=== PATIENT | male | born 1985 | race Caucasian/White ===

== ENCOUNTER 2016-10-12 09:27 | Emergency (ER) | payer SELFPAY ==
[~2016-10-12] VITALS: Ht 177.8 cm; Wt 88.1 kg
[2016-10-12 09:30] VITALS: Ht 177.8 cm; Wt 88.1 kg
--- OUTSIDE RECORDS SUMMARY | 2016-10-12 09:31 | XMS REPORT | Continuity of Care Document ---
Author Author [facility] Organization [facility] Address Unknown Phone Unavailable Support Name Relationship Address Phone DESTINY AGUDELO M.D. Caregiver [employer] [address] [place] [address] YVES DYLLAN A Next Of Kin [address] JACKIE [birth year] [place] [address] Insurance Providers Payer Name Policy Number Subscriber Name Relationship Self Pay Insurance Anna Escamilla Jr 01 Self / Same As Patient Chief Complaint and Reason for Visit Chief Complaint Thumb Laceration Reason for Visit [id number] Problems Medical Problems Problem Onset Date Status Fingertip avulsion Unknown Active Medications Medication Dose Route Sig Days/Qty Instructions Order Date Discontinued Date Status Diphenhydramine Hcl 50 Mg PO DAILY 08/01/14 Active Ibuprofen 400 Mg PO NEEDED 08/01/14 Active Cephalexin Monohydrate 500 Mg PO FOUR TIMES DAILY For Bacterial Infection 28 Qty 08/01/14 Active Social History Social History Problem Response Recorded Date/Time Smoking Status Heavy Tobacco Smoker 08/01/2014 8:09pm Query Response Start Date Stop Date Smoking Status Heavy Tobacco Smoker Hospital Discharge Instructions No hospital discharge instructions. Plan of Care Discharge Date 08/01/14 10:28pm Disposition 01 HOME, SELF-CARE Condition at Discharge Stable Instructions/Education Provided Finger Amputation (ED) Prescriptions See Medications Section Additional Instructions/Education 1. Keep bandaged, use triple antibiotic ointment. 2. Follow up with your doctor in 2-3 days for recheck. 3. Take antibiotic as prescribed. Functional Status No functional status results. Allergies, Adverse Reactions, Alerts Allergen Type Severity Reaction Status Last Updated No Known Allergies Active 08/01/14 Immunizations No immunization records. Vital Signs Acute Vital Signs Vital Response Date/Time Blood Pressure 148/91 mm Hg Blood Pressure Mean 110 mm Hg Temperature (Fahrenheit) 98.7 degrees F (96.0 - 99.9) Temperature (Calculated Celsius) 37.74217 degrees C Temperature Source Oral Pulse Pulse Rate: ED 95 bpm Respiratory Rate 18 breaths per minute (10 - 20) Height (Feet) 5 ft Height (Inches) 11 in. Weight (Pounds) 180 lbs Results No known relevant diagnostic tests, laboratory data and/or discharge summary. Procedures No known history of procedures. Encounters Encounter Location Date/Time Departed Emergency Room [facility] Byr[facility] 08/01/14 8:00pm Recent Diagnosis
--- OUTSIDE RECORDS SUMMARY | 2016-10-12 09:31 | XMS REPORT | Continuity of Care Document ---
Author Author [facility] Address Unknown Phone Unavailable Support Name Relationship Address Phone MADDIE DOMÍNGUEZ M.D. Caregiver [place] [id number] [facility] [address] [place] [address] Unavailable CATRACHITA SORIANO Next Of Kin / [place] / [phone] Insurance Providers Guarantor Anna Escamilla Jr Address [address] [place] [address] Payer Self Pay Insurance Subscriber's Name Anna Escamilla Jr Relationship 01 Self / Same As Patient Chief Complaint and Reason for Visit Chief Complaint GI Bleed Reason for Visit [id number] Right sided abdominal pain Problems Active Problems Medical Problem Onset Date Status Fingertip avulsion Unknown Acute Fingertip avulsion Unknown Acute Past Problems Medical Problem Onset Date Rectal bleeding Unknown Right sided abdominal pain Unknown Medications Current Home Medications Medication Dose Units Route Directions Days Qty Instructions Start Date Dicyclomine Hcl (Bentyl) 20 Mg Tab 20 Mg Oral Three Times A Day as needed for Abdominal Cramping 15 Tablet 09/18/16 Diphenhydramine Hcl (Benadryl) 25 Mg Cap 50 Mg Oral Daily Ibuprofen 400 Mg Tab 400 Mg Oral As Needed 08/01/14 Past Home Medications Medication Directions Ordered Status Cephalexin Monohydrate (Keflex Disp Rx) 500 Mg Cap, 500 Mg Oral Four Times Daily for Bacterial Infection 08/01/14 Discontinued Social History Social History Problem Response Recorded Date/Time Onset Date Status Smoking Status Heavy Tobacco Smoker 09/18/2016 5:17pm Not Applicable Not Applicable Query Response Start Date Stop Date Smoking Status Heavy Tobacco Smoker Hospital Discharge Instructions No hospital discharge instructions. Plan of Care Discharge Date 09/18/16 6:36pm Disposition 01 HOME, SELF-CARE Condition at Discharge Stable Instructions/Education Provided Rectal Bleeding (ED) Abdominal Pain (ED) Prescriptions See Medication Section Referrals KAROLYN SANTILLAN M.D. Address: [address] [place] [address] Additional Instructions/Education Follow up with PCP to have a colonoscopy set up to further evaluate your rectal bleeding. Return to the ER if you have fevers, worsening abdominal pain, or worsening bleeding. Functional Status No functional status results. Allergies, Adverse Reactions, Alerts No known allergies. Immunizations No immunization records. Vital Signs Acute Vital Signs Vital Response Date/Time Blood Pressure 123/76 mm Hg 09/18/2016 6:27pm Blood Pressure Mean 92 mm Hg 09/18/2016 6:27pm Temperature (Fahrenheit) 98.3 degrees F (96.0 - 99.9) 09/18/2016 5:13pm Temperature (Calculated Celsius) 36.17813 degrees C 09/18/2016 5:13pm Temperature Source Oral 09/18/2016 5:13pm Pulse Pulse Rate: ED 82 bpm 09/18/2016 6:27pm Respiratory Rate 18 breaths per minute (10 - 20) 09/18/2016 6:27pm Height (Feet) 5 ft 09/18/2016 5:13pm Height (Inches) 11.0 in. 09/18/2016 5:13pm Weight (Pounds) 180.0 lbs 09/18/2016 5:13pm Height 5 ft 11 in 09/18/2016 5:13pm Weight 180 lb 09/18/2016 5:13pm Body Mass Index 25.1 kg/m^2 09/18/2016 5:13pm Results Laboratory Results Test Name Result Units Flags Reference Collection Date/Time Result Date/ Time Comments White Blood Count 10.5 K/uL H 5.0-10.0 09/18/2016 5:23pm 09/18/2016 5: 41pm Red Blood Count 5.03 M/uL 4.60-5.40 09/18/2016 5:23pm 09/18/2016 5: 41pm Hemoglobin 16.5 g/dL 14.0-18.0 09/18/2016 5:23pm 09/18/2016 5:41pm Hematocrit 47.7 % 40.0-54.0 09/18/2016 5:23pm 09/18/2016 5:41pm Mean Corpuscular Volume 94.8 fL H 80.0-94.0 09/18/2016 5:23pm 2016 5:41pm Mean Corpuscular Hemoglobin 32.8 pg 26.0-33.0 09/18/2016 5:2016 5:41pm Mean Corpuscular Hemoglobin Concent 34.6 g/dL 31.0-36.0 09/18/2016 5: 09/18/2016 5:41pm Red Cell Distribution Width 12.9 % 11.5-14.5 09/18/2016 5:2016 5:41pm RDW Standard Deviation 45.1 fL H 35.1-43.9 09/18/2016 5:09/18/2016 5:41pm Platelet Count 355 K/uL 130-400 09/18/2016 5:09/18/2016 5:41pm Mean Platelet Volume 9.1 fL 7.0-11.0 09/18/2016 5:09/18/2016 5: 41pm Neutrophils (%) (Auto) 62.1 % 42.0-75.0 09/18/2016 5:09/18/2016 5: 41pm Lymphocytes (%) (Auto) 27.9 % 16.0-44.0 09/18/2016 5:09/18/2016 5: 41pm Monocytes (%) (Auto) 6.7 % 2.0-9.0 09/18/2016 5:09/18/2016 5:41pm Eosinophils (%) (Auto) 1.8 % 0-7.0 09/18/2016 5:09/18/2016 5:41pm Basophils (%) (Auto) 1.2 % H 0-1 09/18/2016 5:09/18/2016 5:41pm Immature Granulocyte % (Auto) 0.3 % 0-0.5 09/18/2016 5:09/18/2016 5:41pm Nucleated Red Blood Cells % 0.0 /100WBC 0-0 09/18/2016 5:2016 5:41pm Neutrophils # (Auto) 6.5 K/uL 1.9-8.0 09/18/2016 5:09/18/2016 5: 41pm Lymphocytes # (Auto) 2.9 K/uL 0.9-5.2 09/18/2016 5:23pm 09/18/2016 5: 41pm Monocytes # (Auto) 0.7 K/uL 0.16-1.0 09/18/2016 5:23pm 09/18/2016 5: 41pm Eosinophils # (Auto) 0.2 K/uL 0-0.8 09/18/2016 5:23pm 09/18/2016 5: 41pm Basophils # (Auto) 0.1 K/uL 0-0.2 09/18/2016 5:23pm 09/18/2016 5:41pm Immature Granulocyte # (Auto) 0.03 K/uL 0-0.40 09/18/2016 5:23pm 2016 5:41pm Nucleated Red Blood Cells # 0.00 K/uL 0.0-0.012 09/18/2016 5:23pm 09/18 5:41pm Urine Color YELLOW 09/18/2016 5:38pm 09/18/2016 5:54pm Urine Appearance CLEAR 09/18/2016 5:38pm 09/18/2016 5:54pm Urine Glucose (UA) NEGATIVE NEGATIVE 09/18/2016 5:38pm 09/18/2016 5: 54pm Urine Bilirubin NEGATIVE NEGATIVE 09/18/2016 5:38pm 09/18/2016 5: 54pm Urine Ketones NEGATIVE NEGATIVE 09/18/2016 5:38pm 09/18/2016 5:54pm Urine Specific [place] 1.015 1.005-1.030 09/18/2016 5:38pm 2016 5:54pm Urine Occult Blood NEGATIVE NEGATIVE 09/18/2016 5:38pm 09/18/2016 5: 54pm Urine pH 7.0 4.5-8.0 09/18/2016 5:38pm 09/18/2016 5:54pm Urine Protein NEGATIVE NEGATIVE 09/18/2016 5:38pm 09/18/2016 5:54pm Urine Urobilinogen 0.2 E.U./dL 0.2-1.0 09/18/2016 5:38pm 09/18/2016 5: 54pm Urine Nitrate NEGATIVE NEGATIVE 09/18/2016 5:38pm 09/18/2016 5:54pm Urine Leukocyte Esterase NEGATIVE NEGATIVE 09/18/2016 5:38pm 2016 5:54pm Random Glucose 119 mg/dL H 65-115 09/18/2016 5:pm 09/18/2016 5:50pm Blood Urea Nitrogen 19 mg/dL 8-25 09/18/2016 5:09/18/2016 5:50pm Creatinine 0.92 mg/dL 0.9-1.6 09/18/2016 5:09/18/2016 5:50pm Glomerular Filtration Rate Calc 94.75 mL/min 09/18/2016 5:2016 5:50pm MULTIPLY RESULT BY 1.210 IF THE PATIENT IS -GREEK Units are mL/min/1.73 m2 > 60 Normal kidney function 30-59 Moderately decreased kidney function 15-29 Severely decreased kidney function <15 End-stage kidney failure BUN/Creatinine Ratio 20.7 09/18/2016 5:09/18/2016 5:50pm Sodium Level 136 mEq/L 133-145 09/18/2016 5:pm 09/18/2016 5:50pm Potassium Level 4.1 mEq/L 3.5-5.1 09/18/2016 5:09/18/2016 5:50pm Chloride Level 103 mEq/L 98-116 09/18/2016 5:09/18/2016 5:50pm Carbon Dioxide Level 26 mEq/L 22-34 09/18/2016 5:09/18/2016 5: 50pm Anion Gap 11.1 6-13 09/18/2016 5:09/18/2016 5:50pm Calcium Level 10.7 mg/dL H 8.2-10.6 09/18/2016 5:09/18/2016 5:50pm Total Protein 8.3 gm/dL 6.0-8.4 09/18/2016 5:09/18/2016 5:50pm Albumin 5.0 gm/dL 3.2-5.0 09/18/2016 5:09/18/2016 5:50pm Globulin 3.3 gm/dL H 2.0-3.0 09/18/2016 5:09/18/2016 5:50pm Albumin/Globulin Ratio 1.5 1.4-2.4 09/18/2016 5:09/18/2016 5: 50pm Total Bilirubin 0.6 mg/dL 0.1-1.3 09/18/2016 5:23pm 09/18/2016 5:50pm Alkaline Phosphatase 71 U/L 35-125 09/18/2016 5:23pm 09/18/2016 5:50pm Aspartate Amino Transf (AST/SGOT) 25 U/L 5-40 09/18/2016 5:23pm 2016 5:50pm Alanine Aminotransferase (ALT/SGPT) 26 U/L 40 09/18/2016 5:23pm 09/18 5:50pm Procedures No known history of procedures. Encounters Encounter Location Arrival/Admit Date Discharge/Depart Date Attending Provider Departed Emergency Room [facility] 09/18/16 5:12pm 6:36pm MADDIE DOMÍNGUEZ M.D. Departed Emergency Room [facility] 08/01/14 8:00pm 10:28pm DESTINY AGUDELO M.D. Recent Diagnosis
[2016-10-12] MEDS ORDERED: NORMAL SALINE 1,000 ML IV ONE (10:01)
[2016-10-12] MEDS ORDERED: ONDANSETRON 4mg/2ml INJECTION IV ONE (10:15)
[2016-10-12] MEDS ORDERED: KETOROLAC 30mg/ml INJECTION IV ONE (10:15)
--- OUTSIDE RECORDS SUMMARY | 2016-10-12 10:18 | XMS REPORT | Continuity of Care Document ---
Author Author [facility] Organization [facility] Address Unknown Phone Unavailable Support Name Relationship Address Phone DESTINY AGUDELO M.D. Caregiver [employer] [address] [place] [address] YVES DYLLAN A Next Of Kin [address] JACKIE [birth year] [place] [address] Insurance Providers Payer Name Policy Number Subscriber Name Relationship Self Pay Insurance Anna Escamilla Jr 01 Self / Same As Patient Chief Complaint and Reason for Visit Chief Complaint Thumb Laceration Reason for Visit [id number] Problems Medical Problems Problem Onset Date Status [...] F (96.0 - 99.9) Temperature (Calculated Celsius) 37.68209 degrees C Temperature Source Oral Pulse Pulse Rate: ED 95 bpm Respiratory Rate 18 breaths per minute (10 - 20) Height (Feet) 5 ft Height (Inches) 11 in. Weight (Pounds) 180 lbs Results No known relevant diagnostic tests, laboratory data and/or discharge summary. Procedures No known history of procedures. Encounters Encounter Location Date/Time Departed Emergency Room [facility] Byr[facility] 08/01/14 8:00pm Recent Diagnosis
[2016-10-12 10:24] LABS: HCT - HEMATOCRIT 44.3 % (41-53); HGB - HEMOGLOBIN 15.8 GM/DL (13.5-17.5); MEAN CORPUSCULAR HGB 33.3 UUG (26-34); MEAN CORPUSCULAR HGB CONC(MCHC 35.7 GM/DL (31-37); MEAN CORPUSCULAR VOLUME 93.3 UM3 (80-100); RED BLOOD COUNT 4.75 M/MM3 (4.50-5.90); WBC - WHITE BLOOD COUNT 16.7 T/MM3 (4.5-11.0)
[2016-10-12 10:32] LABS: BLOOD, URINE 3+ (NEGATIVE); COLOR,URINE YELLOW (YELLOW); LEUKOCYTE ESTERASE ,URINE NEGATIVE (NEGATIVE); NITRITE,URINE NEGATIVE (NEGATIVE); UROBILINOGEN,URINE 0.2 EU/DL (NORMAL)
[2016-10-12 10:33] LABS: ALBUMIN 4.9 G/DL (3.5-5.0); ALBUMIN/GLOBULIN RATIO 1.6 RATIO (1.1-2.2); ALKALINE PHOSPHATASE 71 U/L (38-126); ALT (SGPT) 36 U/L (21-72); ANION GAP 13 MEQ/L (5-15); AST (SGOT) 18 U/L (17-59); BUN/CREATININE RATIO 22 RATIO (6-26); CHLORIDE 106 MEQ/L (98-107); CO2 - CARBON DIOXIDE 25 MEQ/L (22-30); GLOMERULAR FILTRATION RATE 86; GLUCOSE 120 MG/DL (75-110); POTASSIUM 4.3 MEQ/L (3.6-5); SODIUM 144 MEQ/L (134-144); TOTAL PROTEIN 7.9 G/DL (6.3-8.2)
[2016-10-12] MEDS ORDERED: OMEP40CA52 PO (10:34)
[2016-10-12] MEDS ORDERED: INDO50CA71 PO (10:34)
[2016-10-12] MEDS ORDERED: CYCL-375 PO (10:34)
[2016-10-12 10:38] LABS: BASOPHILS # (MANUAL) 0.3 T/MM3 (0-0.2); LYMPHOCYTES # (MANUAL) 2.2 T/MM3 (1-4.8); MONOCYTES # (MANUAL) 0.2 T/MM3 (0-0.8); TOTAL CELLS COUNTED 100 %
--- NOTE | 2016-10-12 10:41 | ERPDOC ---
Departure Disposition Decision Date: October 12, 2016 Disposition Decision Time: 10:43 Disposition: 01 DISCHARGED HOME, SELF-CARE Impression Impression Impression: Primary Impression: Ureteral stone Additional Impression: Hydronephrosis Hydronephrosis type: with renal calculous obstruction Qualified Codes: N13.2 - Hydronephrosis with renal and ureteral calculous obstruction Severity: Severe Condition: Improved Seen By: Physician only Referrals: MYNOR CARRILLO MD 3 Days YOUR PHYSICIAN 1 Week Patient Instructions: Ureteral Stones (ED) Problems/Meds/Labs Reviewed?: Yes Medications reviewed and manag: Yes Additional Instructions: You have a kidney stone. Drink lots of water, take the flomax to help pass the stone, and use naproxen or ibuprofen to help with your pain. Follow up with your doctor in the next week to ensure that you have passed the stone. If your pain is too much for the ibuprofen, take the norco also. Follow up care ordered?: Yes Mental Status: Alert, Oriented Scripts Hydrocodone/Acetaminophen ([place] 5-325 Tablet) 5-325 Tablet 1 TAB PO Q6HR Y for PAIN, #20 TAB 0 Refills Prov: OCTOBERPATRICIA DO 10/12/16 Tamsulosin HCl (Flomax) 0.4 Mg Capsule 0.4 MG PO HS for 14 Days, #14 CAP Take 1 capsule, by mouth, one time a day at BEDTIME. Prov: PATRICIA JERRY DO 10/12/16 HPI - Male General Chief Complaint: Abdominal Pain Stated Complaint: SEVERE ABD PAIN Time Seen by Provider: 10:01 Source: patient Exam Limitations: no limitations HPI - Male Initial Comments 31yo man presents to the ER today with right flank pain. Pt c/o similar pain for several months. Has taken ibuprofen/tylenol without significant relief of sx. Has not been evaluated for this before. Occurred At: home Onset: Rapid, Constant Duration: other Pain Scale: Now & Worst: 8/10 Severity/Quality: cramping, sharpness Location: right flank Radiation: groin Activities at Onset: none Prior Genitourinary Problems: similar symptoms Modifying Factors: IMPROVES WITH: analgesics, movement, WORSE WITH: palpation, rest Associated Symptoms: diaphoresis, fever/chills, nausea/vomiting, urinary frequency Hx of Similar Symptoms: Yes Allergies: Coded Allergies: No Known Drug Allergies (Unverified Allergy, Unknown, 6/1/10) Past History Past Medical History GI: GERD Male: BPH Musculoskeletal: back pain Review of Systems GI Upper Abdomen: nausea General: frequency, pain, DENIES: anuria, burning, cloudy urine, discharge, dysuria, hematuria, hx of STD's, incontinence, nocturia, polyuria, renal stones , urgency All other Systems All Other Systems: Reviewed and Negative Physical Exam General General Nourishment: well nourished, well developed, appears stated age, no acute distress, adult, obese General Body Habitus: well groomed Vitals and Pain First Documented Vital Signs Date Time Temp Pulse Resp B/P Pulse Ox O2 Delivery O2 Flow Rate FiO2 10/12/16 09:30 97.8 73 18 191/97 100 Room Air Weight: Kilograms: 88.100 Height (feet): 5 Height (inches): 10.00 Triage Pain Scale: RN VS reviewed by Provider: Yes Normal Exams: Head: Normocephalic w/o trauma Eyes: Pupils are PERRLA w/ EOMI, No scleral icterus, irritation ENMT: No facial trauma, nasal exudates, pharyngeal erythema Neck: Full range of motion, without adenopathy, JVD Lymphatic: No lymphadenopathy Musculoskeletal: No tenderness, or deformity noted Integumentary: No rashes, hives, or bruising noted Neurologic: Patient is alert, and oriented Psychiatric: Patient exhibits, appropriate attention Respiratory (brief) Respiratory: FOUND: clear all rose, equal bilaterally, symmetrical, NOT FOUND : rales, wheezes Cardiovascular (brief) Cardiac: FOUND: regular rate, regular rhythm, NOT FOUND: click, gallop, murmur , pedal edema, peripheral edema, rub Capillary Refill: <2 sec Pulses: all distal extremities, equal, strong Abdomen (brief) Abdominal Brief: FOUND: bowel normo active x4, soft, NOT FOUND: distended, hepatosplenomegaly, pulsatile mass, tender Comments Pos Yong's right Differential Diagnoses Considering: Hematuria, Hernia, Pyelonephritis, Trauma, Ureteral Stone, Urinary Retention, UTI Progress Results/Orders Orders Procedure Category Date Status Time Cbc W/Auto LAB 10/12/16 Complete Diff-Reflex Manual 10:01 Cmp - Comprehensive LAB 10/12/16 Complete Metabolic 10:01 Ct Renal W/O Contrast CT 10/12/16 Taken 10:01 Iv Lock (Ed Only) EDM 10/12/16 Transmitted 10:01 Normal Saline (Normal PHA 10/12/16 Complete Saline Iv) 10:01 Ketorolac (Toradol) PHA 10/12/16 Complete 10:15 Ondansetron Inj PHA 10/12/16 Complete (Zofran) 10:15 Lipase LAB 10/12/16 Complete UA, LAB 10/12/16 Complete Dip&Micro(Complete) & 10:27 Tamsulosin (Flomax PHA 10/12/16 Complete 0.4 Mg) 10:45 Morphine Sulfate PHA 10/12/16 Complete (Morphine) 11:00 Lab Results Laboratory Tests Test 10/12/16 10:19 10/12/16 10:27 White Blood Count 16.7T/MM3 Red Blood Count 4.75M/MM3 Hemoglobin 15.8GM/DL Hematocrit 44.3% Mean Corpuscular Volume 93.3UM3 Mean Corpuscular Hemoglobin 33.3UUG Mean Corpuscular Hemoglobin Concent 35.7GM/DL RDW Standard Deviation 41.1FL Platelet Count 357T/MM3 Mean Platelet Volume 9.0UM3 Immature Granulocyte % (Auto) % Neutrophils (%) (Auto) % Lymphocytes (%) (Auto) % Monocytes (%) (Auto) % Eosinophils (%) (Auto) % Basophils (%) (Auto) % Absolute Immature Granulocyte (auto T/MM3 Absolute Neutrophils (auto) T/MM3 Absolute Lymphocytes (auto) T/MM3 Absolute Monocytes (auto) T/MM3 Absolute Eosinophils (auto) T/MM3 Absolute Basophils (auto) T/MM3 Neutrophils % (Manual) 84.0% Lymphocytes % (Manual) 13.0% Monocytes % (Manual) 1.0% Basophils % (Manual) 2.0% Absolute Neutrophils (Manual) 14.0T/MM3 Lymphocytes # (Manual) 2.2T/MM3 Monocytes # (Manual) 0.2T/MM3 Basophils # (Manual) 0.3T/MM3 Red Cell Morphology Comment Normal Turbidity < 20 Sodium Level 144MEQ/L Potassium Level 4.3MEQ/L Chloride Level 106MEQ/L Carbon Dioxide Level 25MEQ/L Anion Gap 13MEQ/L Blood Urea Nitrogen 22.0MG/DL Creatinine 1.0MG/DL Glomerular Filtration Rate Calc 86 BUN/Creatinine Ratio 22RATIO Glucose Level 120MG/DL Calculated Osmolality 281MOSM/KG Calcium Level 11.0MG/DL Total Bilirubin 0.60MG/DL Icterus Index < 2 Aspartate Amino Transf (AST/SGOT) 18U/L Alanine Aminotransferase (ALT/SGPT) 36U/L Alkaline Phosphatase 71U/L Total Protein 7.9G/DL Albumin 4.9G/DL Globulin 3.0G/DL Albumin/Globulin Ratio 1.6RATIO Lipase 107U/L Chemistry Specimen Hemolysis 35 Urine Collection Type Cleancatch-midstream Urine Color Yellow Urine Turbidity Cloudy Urine pH 6.5 Urine Specific [place] 1.015 Urine Protein Trace Urine Glucose (UA) Negative Urine Ketones Negative Urine Blood 3+ Urine Nitrite Negative Urine Bilirubin Negative Urine Urobilinogen 0.2EU/DL Urine Leukocyte Esterase Negative Urine RBC 20-30/HPF Urine WBC None seen/HPF Urine Squamous Epithelial Cells None seen Urine Amorphous Urates Moderate Urine Bacteria Trace Urine Culture Indicated Cult not indicated Medications Current ED Medications Sodium Chloride (Normal Saline IV) 1,000 ml @ 0 mls/hr Q0M ONCE IV Last administered on 10/12/16 10:21; Start 10/12/16 at 10:01; Stop 10/12/16 at 10:04; Status DC Ketorolac Tromethamine (Toradol) 30 mg O ONCE IV Last administered on 10:23; Start 10/12/16 at 10:15; Stop 10/12/16 at 10:16; Status DC Ondansetron HCl (Zofran) 4 mg O ONCE IV Last administered on 10/12/16 10:25; Start 10/12/16 at 10:15; Stop 10/12/16 at 10:16; Status DC Tamsulosin HCl (FLOMAX 0.4 mg) 0.4 mg O ONCE PO Last administered on 10/12/16 10:47; Start 10/12/16 at 10:45; Stop 10/12/16 at 10:46; Status DC Morphine Sulfate (Morphine) 2 mg O ONCE IV Last administered on 10/12/16 10:57 ; Start 10/12/16 at 11:00; Stop 10/12/16 at 11:01; Status DC Progress Progress 31yo man with renal stone and hydronephrosis. Will rx appropriate meds to help decrease pain and to help pass stone. F/u with PCM/urologist as outpt. Pt voiced understanding of dx, prognosis, and tx. CT CT : CT: Renal no contrast Interpretation: Abnormal (3x2mm ureteral stone; mild perinephric stranding and hydronephrosis.), Reviewed Written Report OCTOBERPATRICIA DO October 12, 2016 10:41
[2016-10-12 10:43] LABS: BACTERIA,URINE TRACE (NEGATIVE); RBC,URINE 20-30 /HPF (0-3); SQUAMOUS EPITHELIAL CELL,UR NONE SEEN; WBC,URINE NONE SEEN /HPF (0-5)
[2016-10-12] MEDS ORDERED: TAMSULOSIN 0.4 MG CAPSULE PO ONE (10:45)
[2016-10-12] MEDS ORDERED: HYDR-4246 PO (10:46)
[2016-10-12] MEDS ORDERED: TAMS-1 PO (10:46)
--- NOTE | 2016-10-12 10:47 | NUR ---
STATUS FLOMAX ADMINISTERED ORDERED. PT'S REPORTED HE WAS A LITTLE BETTER FOR A WHILE AND NOW THE PAIN IS COMING BACK SOME. DR JERRY NOTIFIED
--- NOTE | 2016-10-12 10:50 | NUR ---
PROVIDER DR JERRY AT BEDSIDE
[2016-10-12] MEDS ORDERED: MORPHINE SULFATE 2 MG SYRINGE IV ONE (11:00)
--- NOTE | 2016-10-12 11:20 | NUR ---
COMFORT PT REPORTS PAIN LESS THAT 5/10
--- NOTE | 2016-10-12 11:30 | NUR ---
IVL IVL DC'D WITH CATH INTACT
[2016-10-12 11:32] VITALS: BP 130/85; PULSE 54; RESP 16; TEMP 97.8; O2SAT 100
--- NOTE | 2016-10-12 11:32 | NUR ---
DISMISSAL DISMISSAL INSTRUCTIONS TO PT AND WITH RX FOR FLOMAX AND NORCO. STRAINER AND SPECI CUP SENT WITH PT. PT LEFT DEPARTMENT AMBUALTORY
--- NOTE | 2016-10-13 09:33 | DI ---
Indication: ITS.REASON: Right flank pain PROCEDURE: CT RENAL W/O CONTRAST: Encounter: Initial Comparison: None Technique: Axial CT images were performed through the abdomen and pelvis without intravenous contrast. Coronal and sagittal two-dimensional reformats. Automated Exposure Control and Iterative Reconstruction dose reducing techniques were utilized. Findings: The lung bases are clear. The unenhanced contours of the liver, gallbladder, spleen, pancreas and adrenal glands are within normal limits. Left kidney shows a 5 mm lower pole stone. Right kidney shows moderate hydronephrosis and hydroureter with periureteral stranding to the level of an obstructing 4 mm stone at the ureterovesicular junction. Bladder, prostate and rectum are normal. No free fluid. No evidence of a bowel obstruction. The appendix is normal. Bone windows are within normal limits. Impression: Obstructing 4 mm right ureteral stone at the UVJ. Left nephrolithiasis. There is a preliminary report by [employer]. .
== END 2016-10-12 11:32 | disposition home or self-care (01) ==
LOC: ED 09:27
DX: N13.2 Hydronephrosis with renal and ureteral calculous obstruction (principal)
CPT/HCPCS: 80053; 81001; 83690; 85025